=== PATIENT | female | born 1970 | race Caucasian/White ===

== ENCOUNTER 2017-10-11 23:48 | Emergency (ER) | payer MEDICAID ==
[~2017-10-11] VITALS: Ht 149.9 cm; Wt 45.4 kg
[2017-10-12] MEDS ORDERED: HYDROcodone-ACET 10/325MG TAB PO ONE
[2017-10-12] MEDS ORDERED: HYDROmorphone HCL 2 MG/ML VL IM ONE (01:30)
[2017-10-12] MEDS ORDERED: HYDROmorphone HCL 2 MG/ML VL ONE (01:33)
[2017-10-12 03:33] VITALS: BP 153/57
== END 2017-10-12 03:47 | disposition home or self-care (01) ==
LOC: ER 23:52
DX: S52.591A Other fractures of lower end of right radius, initial encounter for closed fracture (principal); S52.611A Displaced fracture of right ulna styloid process, initial encounter for closed fracture; K21.9 Gastro-esophageal reflux disease without esophagitis; F17.210 Nicotine dependence, cigarettes, uncomplicated; Z88.0 Allergy status to penicillin; W01.0XXA Fall on same level from slipping, tripping and stumbling without subsequent striking against object, initial encounter; Y93.01 Activity, walking, marching and hiking; Y99.8 Other external cause status; Y92.89 Other specified places as the place of occurrence of the external cause
CPT/HCPCS: 29125; 73090; 73100; 73562; 96372; 99284; J1170

== ENCOUNTER 2018-08-02 21:53 | Emergency (ER) | payer MEDICAID ==
[~2018-08-02] VITALS: Ht 149.9 cm; Wt 44.9 kg
[2018-08-02 23:19] LABS: Basophils # (auto) 0.1 uL; Basophils % (auto) 0.5 % (0.0-2.0); Eosinophils # (auto) 0.1 uL; Eosinophils % (auto) 0.8 % (0.0-7.0); Hematocrit 29.7 % (36.0-46.0); Hemoglobin 8.3 g/dL (12.2-16.2); Lymphocytes # (auto) 2.3 uL; Lymphocytes % (auto) 14.3 % (10.0-50.0); Mean Corpuscular Hemoglobin 16.8 pg (28.0-32.0); Mean Corpuscular Hgb Conc. 27.9 g/dL (32.0-36.0); Mean Corpuscular Volume 60.3 fL (80.0-100.0); Monocytes # (auto) 1.2 uL; Monocytes % (auto) 7.7 % (0.0-12.0); Neutrophils # (auto) 12.2 uL; Neutrophils % (auto) 76.7 % (37.0-80.0); Platelet Count (auto) 494 10^3/uL (140-450); Red Blood Cells 4.92 10^6/uL (4.0-5.20); White Blood Cell 15.9 10^3/uL (4.4-10.8)
[2018-08-02 23:20] LABS: Red Cell Distribution Width 20.1 % (11.8-14.3)
[2018-08-02 23:21] LABS: Urine Bacteria FEW /hpf (None Seen); Urine Blood 1+ /uL (Negative); Urine Specific Gravity 1.012 (1.001-1.035); Urine WBC 2 /hpf (0 - 5)
[2018-08-02 23:37] LABS: Potassium 3.9 mmol/L (3.5-5.1)
[2018-08-02 23:48] LABS: BUN/Creatinine Ratio 14.8; Bilirubin, Total 0.2 mg/dL (0.2-1.0); Calcium 9.6 mg/dL (8.5-10.1); Total Protein 7.4 g/dL (6.4-8.2)
[2018-08-03 01:41] VITALS: BP 148/96
== END 2018-08-03 01:39 | disposition home or self-care (01) ==
LOC: ER 21:56
DX: O03.9 Complete or unspecified spontaneous abortion without complication (principal); O23.41 Unspecified infection of urinary tract in pregnancy, first trimester; O99.331 Smoking (tobacco) complicating pregnancy, first trimester; Z3A.01 Less than 8 weeks gestation of pregnancy
CPT/HCPCS: 36415; 80053; 81001; 84702; 85025

== ENCOUNTER 2018-08-06 15:13 | Emergency (ER) | payer MEDICAID ==
[~2018-08-06] VITALS: Ht 149.9 cm; Wt 43.1 kg
[2018-08-06] MEDS ORDERED: SODIUM CHLORIDE 0.9% 1,000 ML IV ONE (16:13)
[2018-08-06] MEDS ORDERED: ONDANSETRON HCL 4 MG/2 ML VIAL IV ONE (16:15)
[2018-08-06] MEDS ORDERED: MORPHINE SULFATE 4 MG/ML SYR/VIAL IV ONE (16:15)
[2018-08-06 16:30] LABS: Basophils # (auto) 0.1 uL; Eosinophils # (auto) 0 uL; Hemoglobin 8.8 g/dL (12.2-16.2); Lymphocytes # (auto) 1.5 uL
[2018-08-06 16:34] LABS: Basophils % (auto) 0.6 % (0.0-2.0); Eosinophils % (auto) 0.3 % (0.0-7.0); Hematocrit 30.5 % (36.0-46.0); Lymphocytes % (auto) 13.7 % (10.0-50.0); Mean Corpuscular Hemoglobin 17.4 pg (28.0-32.0); Mean Corpuscular Hgb Conc. 28.7 g/dL (32.0-36.0); Mean Corpuscular Volume 60.5 fL (80.0-100.0); Monocytes # (auto) 0.5 uL; Monocytes % (auto) 4.7 % (0.0-12.0); Neutrophils # (auto) 8.9 uL; Neutrophils % (auto) 80.7 % (37.0-80.0); Platelet Count (auto) 465 10^3/uL (140-450); Red Blood Cells 5.04 10^6/uL (4.0-5.20); Red Cell Distribution Width 19.9 % (11.8-14.3); White Blood Cell 11.1 10^3/uL (4.4-10.8)
[2018-08-06 16:55] LABS: Albumin 4.1 g/dL (3.4-5.0); BUN/Creatinine Ratio 19.7; Calcium 8.7 mg/dL (8.5-10.1); Potassium 4.1 mmol/L (3.5-5.1)
[2018-08-06 16:58] LABS: Bilirubin, Total 0.4 mg/dL (0.2-1.0); Total Protein 7.4 g/dL (6.4-8.2)
[2018-08-06 17:18] LABS: Urine WBC None Seen /hpf (0 - 5)
[2018-08-06 17:44] LABS: Urine Bacteria NONE SEEN /hpf (None Seen); Urine Blood TRACE /uL (Negative); Urine Specific Gravity 1.023 (1.001-1.035)
[2018-08-06 18:20] VITALS: BP 108/68
== END 2018-08-06 20:33 | disposition home or self-care (01) ==
LOC: ER 15:13
DX: O46.91 Antepartum hemorrhage, unspecified, first trimester (principal); Z3A.10 10 weeks gestation of pregnancy
CPT/HCPCS: 36415; 76801; 76817; 80053; 81001; 84702; 85025; 86850; 86900; 86901; 94761; 96374; 96375; 99284; J2270; J2405; J7030

== ENCOUNTER 2018-10-21 18:07 | Emergency (ER) | payer MEDICAID ==
[~2018-10-21] VITALS: Ht 149.9 cm; Wt 45.4 kg
[2018-10-21 19:38] LABS: Basophils # (auto) 0.1 uL; Eosinophils # (auto) 0.2 uL; Lymphocytes # (auto) 1.5 uL; Monocytes # (auto) 0.6 uL
[2018-10-21 19:40] LABS: Basophils % (auto) 0.5 % (0.0-2.0); Eosinophils % (auto) 1.8 % (0.0-7.0); Hematocrit 42.3 % (36.0-46.0); Hemoglobin 13.3 g/dL (12.2-16.2); Lymphocytes % (auto) 14.4 % (10.0-50.0); Mean Corpuscular Hemoglobin 25.7 pg (28.0-32.0); Mean Corpuscular Hgb Conc. 31.4 g/dL (32.0-36.0); Mean Corpuscular Volume 81.7 fL (80.0-100.0); Monocytes % (auto) 5.3 % (0.0-12.0); Neutrophils # (auto) 8.3 uL; Platelet Count (auto) 260 10^3/uL (140-450); Red Blood Cells 5.17 10^6/uL (4.0-5.20); White Blood Cell 10.7 10^3/uL (4.4-10.8)
[2018-10-21 19:45] LABS: Urine Bacteria FEW /hpf (None Seen); Urine Blood Negative /uL (Negative); Urine Specific Gravity 1.003 (1.001-1.035); Urine WBC 4 /hpf (0 - 5)
[2018-10-21 19:47] LABS: Red Cell Distribution Width 27.4 % (11.8-14.3)
[2018-10-21 19:51] LABS: Albumin 3.5 g/dL (3.4-5.0); Anion Gap 6 (5-15); Blood Urea Nitrogen 13 mg/dL (7-18); Calcium 8.7 mg/dL (8.5-10.1); Carbon Dioxide 26 mmol/L (21-32); Chloride 108 mmol/L (98-107); Glucose 103 mg/dL (74-106); Potassium 3.9 mmol/L (3.5-5.1); Sodium 140 mmol/L (136-145)
[2018-10-21 19:57] LABS: Alanine Aminotransferase 11 U/L (13-56); Alkaline Phosphatase 73 U/L (45-117); Aspartate Aminotransferase 10 U/L (15-37); Bilirubin, Total 0.2 mg/dL (0.2-1.0); GFR African American 125 mL/min; GFR Non-African American 103 mL/min; Total Protein 6.6 g/dL (6.4-8.2)
[2018-10-21] MEDS ORDERED: LORazepam 0.5 MG TAB PO ONE (21:30)
[2018-10-21] MEDS ORDERED: cloNIDine HCL 0.1 MG TAB PO ONE (21:30)
[2018-10-21 22:31] VITALS: BP 130/78
== END 2018-10-21 23:13 | disposition home or self-care (01) ==
LOC: ER 18:07 → EDBD 18:07 → ER 23:13
DX: R51 Headache (principal); I10 Essential (primary) hypertension; F41.9 Anxiety disorder, unspecified; G23.8 Other specified degenerative diseases of basal ganglia; Q28.8 Other specified congenital malformations of circulatory system; F17.210 Nicotine dependence, cigarettes, uncomplicated; K21.9 Gastro-esophageal reflux disease without esophagitis; Z88.0 Allergy status to penicillin
CPT/HCPCS: 36415; 70450; 80053; 81001; 84484; 84702; 85025; 93005; 94761